=== PATIENT | female | born 1950 | race Caucasian/White ===

== ENCOUNTER 2020-10-05 03:46 | Emergency (ER) | payer MEDICARE ==
[2020-10-05] MEDS ORDERED: Sodium Chloride 0.9% 1000 ML 1,000 ML IV STA (04:21)
[2020-10-05] MEDS ORDERED: Zofran 4 MG/2 ML VIAL IV ONE (04:21)
--- NOTE | 2020-10-05 04:21 | ERPHSYRPT ---
- History of Present Illness Time Seen by Provider: 10/05/20 04:20 Source: patient, family Patient Subjective Stated Complaint: Patient states, "I don't know what happened." EMS states blood sugar was 41 upon arrival and is now 109. Patient's found her unresponsive and called an ambulance. Patient had been camping out at [facility] with her . Accucheck 164 at this time. Triage Nursing Assessment: Patient arrived by ambulance and had on only her underwear. Patient indicates this is how she sleeps. C/O being cold. Skin is cool and clammy. Patient is alert and answering questions appropriately but is hard of hearing. Denies nausea or pain. No SOB noted. Physician History: This is a 70-year-old diabetic white female patient of Dr. Lockett who presents with unresponsiveness at a campground scene and a blood sugar of 41. Patient was given intravenous glucose by EMS. EMS transported the patient to the emergency room and her blood sugar was 164. Patient was awake alert and oriented upon arrival to the emergency department. She states she did know what happened she ate prior to going to sleep. She denies chest pain. She denies shortness of breath. She has no abdominal pain. She has no nausea vomiting or diarrhea symptoms. She does have a history of hypertension, elevated cholesterol, polycythemia, hyperlipidemia and she is a smoker. Patient states that she feels pretty normal upon arrival into the emergency department Timing/Duration: today Severity: moderate Modifying Factors: Improves With: other (Symptoms improved after ingestion of oral intake including oral glucose and intravenous glucose.) Allergies/Adverse Reactions: No Known Drug Allergies Allergy (Verified 10/05/20 04:05) Home Medications: Amphet Asp/Amphet/D-Amphet [Adderall 30 mg Tablet] 20 mg PO BID 02/18/18 [History] Aspirin [Aspirin EC] 81 mg PO DAILY 02/18/18 [History] Atorvastatin Calcium [Lipitor] 10 mg PO QHS 02/18/18 [History] Canagliflozin [Invokana] 300 mg PO DAILY 02/18/18 [History] Insulin Glargine,Hum.rec.anlog [Lantus] 20 unit SQ DAILY 02/18/18 [History] Metformin HCl 500 mg [Glucophage 500 MG] 500 mg PO BID 02/18/18 [History] Linaclotide [Linzess] 72 mcg PO DAILY 10/05/20 [History] Losartan/Hydrochlorothiazide [Losartan-Hctz 50-12.5 mg Tab] 1 tab PO DAILY 10/05/20 [History] Meloxicam 7.5 mg PO BID 10/05/20 [History] Hx Tetanus, Diphtheria Vaccination/Date Given: Yes Immunizations Up to Date: Yes Travel Risk - International Travel Have you traveled outside of the country in past 3 weeks: No - Coronavirus Screening Are you exhibiting any of the following symptoms?: No Close contact with a COVID-19 positive Pt in past 14-21 Days: No - Vaccine Status Have you recieved a Covid-19 vaccination: Yes [employer] Operator: Moderna - Vaccination Dates Date of 2cond Vaccination (if applicable): April 2020 - Review of Systems Constitutional: Weakness, Other (Minimally responsive at the scene. However upon arrival to emergency department awake alert and oriented with resolution of all her symptoms) Eyes: No Symptoms Ears, Nose, & Throat: No Symptoms Respiratory: No Symptoms Cardiac: No Symptoms Abdominal/Gastrointestinal: No Symptoms Genitourinary Symptoms: No Symptoms Musculoskeletal: No Symptoms Skin: No Symptoms Neurological: No Symptoms Psychological: No Symptoms Endocrine: No Symptoms Hematologic/Lymphatic: No Symptoms Immunological/Allergic: No Symptoms All Other Systems: Reviewed and Negative - Past Medical History Pertinent Past Medical History: Yes Neurological History: No Pertinent History ENT History: No Pertinent History Cardiac History: High Cholesterol, Hypertension Respiratory History: No Pertinent History Endocrine Medical History: Diabetes Type II Musculoskeletal History: Osteoarthritis GI Medical History: No Pertinent History History: No Pertinent History Psycho-Social History: No Pertinent History Female Reproductive Disorders: No Pertinent History Other Medical History: polycythemia, hyperlipidemia - Past Surgical History Past Surgical History: Yes Neuro Surgical History: No Pertinent History Cardiac: No Pertinent History Respiratory: Other Gastrointestinal: Appendectomy Genitourinary: No Pertinent History Musculoskeletal: Orthopedic Surgery Female Surgical History: No Pertinent History Other Surgical History: hand surgery - Social History Smoking Status: Current every day smoker How long have you smoked: 50 years Exposure to second hand smoke: Yes Drug Use: none Patient Lives Alone: No - Female History Hx Now: No - Nursing Vital Signs Nursing Vital Signs: Initial Vital Signs Temperature 96.8 F 10/05/20 03:48 Pulse Rate 90 10/05/20 03:48 Respiratory Rate 17 10/05/20 03:48 Blood Pressure 133/78 10/05/20 03:48 O2 Sat by Pulse Oximetry 99 10/05/20 03:48 Pain Scale Pain Intensity 0 - Physical Exam General Appearance: no apparent distress, alert, anxiety Eye Exam: PERRL/EOMI, eyes nml inspection Ears, Nose, Throat Exam: normal ENT inspection, moist mucous membranes Neck Exam: normal inspection, non-tender, supple, full range of motion Respiratory Exam: normal breath sounds, lungs clear, airway intact, No chest tenderness, No respiratory distress Cardiovascular Exam: regular rate/rhythm, normal heart sounds, normal peripheral pulses Gastrointestinal/Abdomen Exam: soft, normal bowel sounds, No tenderness Pelvic Exam: not done Rectal Exam: not done Back Exam: normal inspection, normal range of motion, No CVA tenderness, No vertebral tenderness Extremity Exam: normal inspection, normal range of motion, pelvis stable Neurologic Exam: alert, oriented x 3, cooperative, track rider II-XII nml as tested, normal mood/affect, nml cerebellar function, nml station & gait, sensation nml Skin Exam: normal color, warm, dry Lymphatic Exam: No adenopathy SpO2 Interpretation: normal SpO2: 99 O2 Delivery: Room Air - Course Nursing assessment & vital signs reviewed: Yes EKG Interpreted by Me: RATE (82), Sinus Rhythm, NORMAL AXIS, NORMAL INTERVALS, NORMAL QRS, NORMAL ST-T, Other (No acute ischemic changes on today's EKG. No change from comparison EKG dated 01/12/2019.) Ordered Tests: Active Orders 24 hr Category Date Time Status Industrial Relations Analyst STAT Care 10/05/20 04:22 Active EKG-ER Only STAT Care 10/05/20 04:21 Active IV Insertion STAT Care 10/05/20 04:21 Active Pulse Oximetry (ED) STAT Care 10/05/20 04:21 Active HEAD WITHOUT CONTRAST [CT] Stat Exams 10/05/20 04:22 Taken CBC W DIFF Stat Lab 10/05/20 04:38 Completed CMP Stat Lab 10/05/20 04:38 Completed ETHYL ALCOHOL Stat Lab 10/05/20 04:38 Completed Lactic Acid Urgent Lab 10/05/20 04:36 Completed MAGNESIUM Stat Lab 10/05/20 04:38 Completed TROPONIN Q3H Lab 10/05/20 04:38 Completed TROPONIN Q3H Lab 10/05/20 07:30 Ordered TROPONIN Q3H Lab 10/05/20 10:30 Ordered TROPONIN Q3H Lab 10/05/20 13:30 Ordered TROPONIN Q3H Lab 10/05/20 16:30 Ordered UA W/RFX UR CULTURE Stat Lab 10/05/20 05:30 Completed Urine Triage Profile Stat Lab 10/05/20 05:30 Completed Medication Summary Discontinued Medications Generic Name Dose Route Start Last Admin Trade Name Elianq PRN Reason Stop Dose Admin Sodium Chloride 1,000 mls @ 999 mls/hr 10/05/20 04:21 10/05/20 05:52 Sodium Chloride 0.9% 1000 Ml IV 10/05/20 05:21 Infused .Q1H1M STA Infusion Sodium Chloride Confirm 10/05/20 04:32 Sodium Chloride 0.9% 1000 Ml Administered 10/05/20 04:33 Dose 1,000 mls @ ud .ROUTE .STK-MED ONE Ondansetron HCl 4 mg 10/05/20 04:21 10/05/20 04:39 Zofran 4 Mg/2 Ml Vial IV 10/05/20 04:22 4 mg STAT ONE Administration Ondansetron HCl Confirm 10/05/20 04:32 Zofran 4 Mg/2 Ml Vial Administered 10/05/20 04:33 Dose 4 mg .ROUTE .STK-MED ONE Lab/Rad Data: Laboratory Result Diagrams 10/05/20 04:38 10/05/20 04:38 Laboratory Results 10/05/20 10/05/20 10/05/20 Range/Units 05:30 05:30 04:38 WBC (4.0-10.5) K/mm3 RBC (4.1-5.4) M/mm3 Hgb (12.0-16.0) gm/dl Hct (35-47) % MCV (78-100) fl MCH (26-32) pg MCHC (32-36) g/dl RDW (11.5-14.0) % Plt Count (150-450) K/mm3 MPV (7.5-11.0) fl Gran % (36.0-66.0) % Eos # (Auto) (0-0.5) Absolute Lymphs (auto) (1.0-4.6) Absolute Monos (auto) (0.0-1.3) Lymphocytes % (24.0-44.0) % Monocytes % (0.0-12.0) % Eosinophils % (0.00-5.0) % Basophils % (0.0-0.4) % Absolute Granulocytes (1.4-6.9) Basophils # (0-0.4) Sodium (137-145) mmol/L Potassium (3.5-5.1) mmol/L Chloride (98-107) mmol/L Carbon Dioxide (22-30) mmol/L Anion Gap (5-15) MEQ/L BUN (7-17) mg/dL Creatinine (0.52-1.04) mg/dL Estimated GFR ML/MIN Glucose (74-106) mg/dL Lactic Acid (0.4-2.0) Calcium (8.4-10.2) mg/dL Magnesium (1.6-2.3) mg/dL Total Bilirubin (0.2-1.3) mg/dL AST (14-36) U/L ALT (0-35) U/L Alkaline Phosphatase (38-126) U/L Troponin I < 0.012 (0.000-0.034) ng/mL Serum Total Protein (6.3-8.2) g/dL Albumin (3.5-5.0) g/dL Urine Color STRAW (YELLOW) Urine Appearance CLEAR (CLEAR) Urine pH 5.0 (5-6) Ur Specific [place] 1.014 (1.005-1.025) Urine Protein NEGATIVE (Negative) Urine Ketones NEGATIVE (NEGATIVE) Urine Blood NEGATIVE (0-5) Alan/ul Urine Nitrite NEGATIVE (NEGATIVE) Urine Bilirubin NEGATIVE (NEGATIVE) Urine Urobilinogen NEGATIVE (0-1) mg/dL Ur Leukocyte Esterase TRACE (NEGATIVE) Urine WBC (Auto) NONE (0-5) /HPF Urine RBC (Auto) NONE (0-2) /HPF U Hyaline Cast (Auto) 3-5 (0-2) /LPF U Epithel Cells (Auto) RARE (FEW) /HPF Urine Bacteria (Auto) NONE (NEGATIVE) /HPF Urine Mucus (Auto) SLIGHT (NEGATIVE) /HPF Urine Culture Reflexed NO (NO) Urine Glucose 50 (NEGATIVE) mg/dL Urine Opiates Level POSITIVE (NEGATIVE) Ur Methadone NEGATIVE (NEGATIVE) Urine Barbiturates NEGATIVE (NEGATIVE) Ur Phencyclidine (PCP) NEGATIVE (NEGATIVE) Urine Amphetamine POSITIVE (NEGATIVE) U Benzodiazepine Level NEGATIVE (NEGATIVE) Urine Cocaine NEGATIVE (NEGATIVE) Urine Marijuana (THC) NEGATIVE (NEGATIVE) Ethyl Alcohol (0-10) mg/dL 10/05/20 10/05/20 10/05/20 Range/Units 04:38 04:38 04:36 WBC 11.4 H (4.0-10.5) K/mm3 RBC 5.14 (4.1-5.4) M/mm3 Hgb 14.9 (12.0-16.0) gm/dl Hct 46.2 (35-47) % MCV 89.9 (78-100) fl MCH 29.0 (26-32) pg MCHC 32.3 (32-36) g/dl RDW 14.9 H (11.5-14.0) % Plt Count 264 (150-450) K/mm3 MPV 9.3 (7.5-11.0) fl Gran % 81.2 H (36.0-66.0) % Eos # (Auto) 0.08 (0-0.5) Absolute Lymphs (auto) 1.60 (1.0-4.6) Absolute Monos (auto) 0.43 (0.0-1.3) Lymphocytes % 14.1 L (24.0-44.0) % Monocytes % 3.8 (0.0-12.0) % Eosinophils % 0.7 (0.00-5.0) % Basophils % 0.2 (0.0-0.4) % Absolute Granulocytes 9.22 H (1.4-6.9) Basophils # 0.02 (0-0.4) Sodium 139 (137-145) mmol/L Potassium 4.1 (3.5-5.1) mmol/L Chloride 105 (98-107) mmol/L Carbon Dioxide 23 (22-30) mmol/L Anion Gap 15.1 H (5-15) MEQ/L BUN 33 H (7-17) mg/dL Creatinine 1.32 H (0.52-1.04) mg/dL Estimated GFR 42.0 ML/MIN Glucose 130 H (74-106) mg/dL Lactic Acid 1.6 (0.4-2.0) Calcium 9.3 (8.4-10.2) mg/dL Magnesium 2.0 (1.6-2.3) mg/dL Total Bilirubin 0.40 (0.2-1.3) mg/dL AST 29 (14-36) U/L ALT 15 (0-35) U/L Alkaline Phosphatase 99 (38-126) U/L Troponin I (0.000-0.034) ng/mL Serum Total Protein 7.0 (6.3-8.2) g/dL Albumin 4.2 (3.5-5.0) g/dL Urine Color (YELLOW) Urine Appearance (CLEAR) Urine pH (5-6) Ur Specific [place] (1.005-1.025) Urine Protein (Negative) Urine Ketones (NEGATIVE) Urine Blood (0-5) Alan/ul Urine Nitrite (NEGATIVE) Urine Bilirubin (NEGATIVE) Urine Urobilinogen (0-1) mg/dL Ur Leukocyte Esterase (NEGATIVE) Urine WBC (Auto) (0-5) /HPF Urine RBC (Auto) (0-2) /HPF U Hyaline Cast (Auto) (0-2) /LPF U Epithel Cells (Auto) (FEW) /HPF Urine Bacteria (Auto) (NEGATIVE) /HPF Urine Mucus (Auto) (NEGATIVE) /HPF Urine Culture Reflexed (NO) Urine Glucose (NEGATIVE) mg/dL Urine Opiates Level (NEGATIVE) Ur Methadone (NEGATIVE) Urine Barbiturates (NEGATIVE) Ur Phencyclidine (PCP) (NEGATIVE) Urine Amphetamine (NEGATIVE) U Benzodiazepine Level (NEGATIVE) Urine Cocaine (NEGATIVE) Urine Marijuana (THC) (NEGATIVE) Ethyl Alcohol < 10 (0-10) mg/dL - Progress Progress: improved, re-examined Progress Note: 10/05/20 06:12 CAT scan of the head without contrast shows no acute intracranial findings. Counseled pt/family regarding: lab results, diagnosis, need for follow-up, rad results - Departure Departure Disposition: Home Clinical Impression: Hypoglycemia Condition: Stable Critical Care Time: No Referrals: INES LOCKETT MD [Primary Care Provider] - Additional Instructions: Make sure you are monitoring your blood sugar closely. Make sure you are eating well before taking your diabetic medication. Consume alcohol beverage in moderation. Follow-up with your primary care physician on an as needed basis.
[2020-10-05] MEDS ORDERED: Sodium Chloride 0.9% 1000 ML 1,000 ML ONE (04:32)
[2020-10-05] MEDS ORDERED: Zofran 4 MG/2 ML VIAL ONE (04:32)
[2020-10-05 04:41] LABS: Absolute Neutrophil Ct (ANC) 9.22 (1.4-6.9); BASOPHIL % 0.2 % (0.0-0.4); Basophil (Absolute #) 0.02 (0-0.4); Eosinophil % 0.7 % (0.00-5.0); Eosinophil (Absolute #) 0.08 (0-0.5); Hematocrit 46.2 % (35-47); Hemoglobin 14.9 gm/dl (12.0-16.0); Lymphocytes % 14.1 % (24.0-44.0); Mean Cell Volume 89.9 fl (78-100); Mean Corpuscular Hgb Concent. 32.3 g/dl (32-36); Mean Platelet Volume 9.3 fl (7.5-11.0); Monocyte (Absolute #) 0.43 (0.0-1.3); Monocytes % 3.8 % (0.0-12.0); Neutrophil % 81.2 % (36.0-66.0); Platelet Count 264 K/mm3 (150-450); Red Blood Count 5.14 M/mm3 (4.1-5.4); Red Cell Distribution Width 14.9 % (11.5-14.0); White Blood Count 11.4 K/mm3 (4.0-10.5)
[2020-10-05 04:54] LABS: ALBUMIN 4.2 g/dL (3.5-5.0); ALKALINE PHOSPHATASE 99 U/L (38-126); ANION GAP 15.1 MEQ/L (5-15); BLOOD UREA NITROGEN 33 mg/dL (7-17); CHLORIDE 105 mmol/L (98-107); Calcium 9.3 mg/dL (8.4-10.2); Carbon Dioxide 23 mmol/L (22-30); Creatinine 1 1.32 mg/dL (0.52-1.04); ETHYL ALCOHOL < 10 mg/dL (0-10); Glucose 130 mg/dL (74-106); Potassium 4.1 mmol/L (3.5-5.1); SGOT/AST 29 U/L (14-36); SGPT/ALT 15 U/L (0-35); SODIUM 139 mmol/L (137-145)
[2020-10-05 05:45] LABS: Appearance CLEAR (CLEAR); Bilirubin NEGATIVE (NEGATIVE); Blood NEGATIVE Ery/ul (0-5); Epithelial Cells RARE /HPF (FEW); Glucose 50 mg/dL (NEGATIVE); Ketones NEGATIVE (NEGATIVE); Leukocyte Esterase TRACE (NEGATIVE); Mucus SLIGHT /HPF (NEGATIVE); Nitrite NEGATIVE (NEGATIVE); Protein,Urine Dip NEGATIVE (Negative); Specific Gravity 1.014 (1.005-1.025); Urobilinogen NEGATIVE mg/dL (0-1)
[2020-10-05 05:58] LABS: Amphetamine,Urine POSITIVE (NEGATIVE); Barbiturate,Urine NEGATIVE (NEGATIVE); Benzodiazepine,Urine NEGATIVE (NEGATIVE); Cocaine,Urine NEGATIVE (NEGATIVE); Methadone,Urine NEGATIVE (NEGATIVE); Opiate,Urine POSITIVE (NEGATIVE); PCP,Urine NEGATIVE (NEGATIVE); THC,Urine NEGATIVE (NEGATIVE)
[2020-10-05 06:02] VITALS: BP 155/83; PULSE 83; O2SAT 99
--- NOTE | 2020-10-05 07:16 | XRAY ---
Indication: Confusion. Hypoglycemia. Multiple contiguous axial images obtained through the head without contrast. Comparison: None. Age-appropriate global atrophy and mild periventricular degenerative micro-ischemia bilaterally. No acute intracranial hemorrhage, abnormal extra-axial fluid collection, or mass effect. Fourth ventricle is midline without hydrocephalus. Bony calvarium intact. Visualized paranasal sinuses and mastoid air cells are clear. Impression: Nonacute senile brain. Comment: Preliminary interpretation made by [facility]. No critical discrepancy.
== END 2020-10-05 06:29 | disposition home or self-care (01) ==
LOC: ED 03:46
DX: E11.649 Type 2 diabetes mellitus with hypoglycemia without coma (principal); Z79.899 Other long term (current) drug therapy; R53.1 Weakness; I10 Essential (primary) hypertension; E78.5 Hyperlipidemia, unspecified; E78.00 Pure hypercholesterolemia, unspecified
CPT/HCPCS: 36000; 36415; 70450; 80053; 80307; 81001; 83605; 83735; 84484; 85025; 93005; 93041; 94760; 96365; 96374; 99284; G0480; J2405